=== PATIENT | male | born 1945 | race Caucasian/White ===

== ENCOUNTER 2016-06-28 10:53 | Inpatient (IN) | payer MEDICARE, OTHER ==
[~2016-06-28] VITALS: Ht 167.6 cm; Wt 68.0 kg
[~2016-06-28 10:53] MED LIST: GLYB5TAB3 PO; METF500T4 PO
[2016-06-28] MEDS ORDERED: SOD CHLORIDE 0.9% 1,000 ML IV STA (11:20)
[2016-06-28] MEDS ORDERED: MECLIZINE 12.5 MG TAB PO ONE (11:30)
--- NOTE | 2016-06-28 11:46 | RADRPT ---
PROCEDURE: Chest Radiograph. CLINICAL INDICATION: Stroke. TECHNIQUE: Single frontal chest radiograph. COMPARISON: Chest radiograph 12/06/2014 FINDINGS: The cardiomediastinal silhouette is within normal limits. No infiltrate or effusion is seen. Th e bones are intact. IMPRESSION: 1. Unremarkable chest radiograph. RPTAT: KK .Chang Moffett MD, MD Date Time Electronically viewed and signed by .Chang Moffett MD, on 06/28/2016 11:45 .B/
[2016-06-28 12:16] LABS: ADD UMIC YES; URINE BILIRUBIN (Dip) NEGATIVE (NEGATIVE); URINE BLOOD (Dip) 2+ (NEGATIVE); URINE COLOR LT. YELLOW (YELLOW); URINE GLUCOSE (Dip) >=1000 % (NEGATIVE); URINE KETONES (Dip) NEGATIVE (NEGATIVE); URINE LEUKOCYTE ESTERASE (Dip) NEGATIVE (NEGATIVE); URINE NITRITE (Dip) NEGATIVE (NEGATIVE); URINE TOTAL PROTEIN (Dip) 4+ (NEGATIVE); URINE UROBILINOGEN (Dip) 0.2 E.U./dL (0.1-1.0)
[2016-06-28 12:29] LABS: BACTERIA,URINE FEW
[2016-06-28 12:47] LABS: ADD SCAN DIFF NO
[2016-06-28 13:00] LABS: BASOPHILS % 0.2 % (0.0-2.0); EOSINOPHILS % 0.2 % (0.0-7.0); HEMATOCRIT 41.6 % (42.0-52.0); HEMOGLOBIN 14.8 g/dl (14.0-18.0); MEAN CORPUSCULAR HEMOGLOBIN 31.4 pg (29.0-33.0); MEAN CORPUSCULAR HGB CONC 35.6 g/dl (32.0-37.0); MEAN CORPUSCULAR VOLUME 88.1 fl (82.0-101.0); MEAN PLATELET VOLUME 10.3 fl (7.4-10.4); MONOCYTE # 0.5 10^3/ul (0.3-0.9); MONOCYTES % 5.1 % (0.0-11.0); NEUTROPHIL # 8.1 10^3/ul (1.6-7.5); NEUTROPHILS % 84.1 % (39.0-77.0); PLATELET COUNT 284 10^3/UL (140-415); RED BLOOD COUNT 4.72 10^6/ul (4.70-6.10); RED CELL DISTRIBUTION WIDTH 11.8 % (11.5-14.5); WHITE BLOOD COUNT 9.6 10^3/ul (4.8-10.8)
[2016-06-28 13:01] LABS: BARBITURATES Negative (NEGATIVE); BENZODIAZEPINES Negative (NEGATIVE); CANNABINOIDS Negative (NEGATIVE); COCAINE Negative (NEGATIVE); OPIATES Negative (NEGATIVE)
[2016-06-28 13:06] LABS: CHLORIDE 96 mmol/L (97-110)
[2016-06-28 13:07] LABS: POTASSIUM 4.4 mmol/L (3.5-5.1); SODIUM 135 mmol/L (135-144)
[2016-06-28 13:08] LABS: INR 0.97; PROTIME 12.9 Sec (12.2-14.2)
[2016-06-28 13:09] LABS: CREATININE 0.92 mg/dl (0.61-1.24); PARTIAL THROMBOPLASTIN TIME 33.7 Sec (25.0-35.0)
[2016-06-28 13:10] LABS: ANION GAP 14 (8-16); BLOOD UREA NITROGEN 19 mg/dl (7-20); CALCIUM 9.9 mg/dl (8.4-10.2); CARBON DIOXIDE 29 mmol/L (21-31); GLUCOSE 267 mg/dl (70-220)
[2016-06-28 13:23] LABS: TROPONIN-I < 0.012 ng/ml (0.00-0.12)
--- NOTE | 2016-06-28 13:29 | RADRPT ---
PROCEDURE: Noncontrast CT Head. CLINICAL INDICATION: Syncope. Nausea. Stroke. TECHNIQUE: Noncontrast CT of the head was obtained. The administered radiation dose was CTDI vol = 44.58 mGy, DLP = 630.02 mGy-cm. One or more of the following dose reduction techniques were used: Au tomated exposure control, Adjustment of the mA and/or kV according to patient size, or Use of iterat armani reconstruction technique. COMPARISON: There are no similar studies submitted for comparison. FINDINGS: There is minimal generalized cerebral volume loss. There is mild periventricular hypoattenuation sug gesting chronic microvascular ischemic changes. There is a 1.4 cm focal hypodensity within the right superior cerebellum suggestive of acute / recen t infarction. 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 There are mild vascular calcifications within th e intracranial carotid arteries. There is no acute intracranial hemorrhage or extra-axial fluid collection. There is no mass effect. No midline shift is identified. The orbits are within normal limits. The paranasal sinuses are well aerated. No destructive osseous lesion is identified. IMPRESSION: 1. Focal loss of rocha-white differentiation within the right superior cerebellar hemisphere suggesti ng acute / recent infarction. Noncontrast MRI of the brain may be performed as clinically warranted . 2. No acute intracranial hemorrhage. 3. Minimal generalized cerebral volume loss. 4. Minimal chronic microvascular ischemic changes. 5. 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 Further findings as detailed above. These findings were discussed with Dr. Nazario Christine at 01:23 p.m. on June 28, 2016. RPTAT: PP .Tam Vanrer MD, Date Time Electronically viewed and signed by .Tam Varner MD, MD on 06/28/2016 13:28 .F/
[2016-06-28] MEDS ORDERED: ASPIRIN 325 MG TAB PO ONE (13:30)
[2016-06-28] MEDS ORDERED: ACETAMINOPHEN 325 MG TAB PO PRN (14:00)
[2016-06-28] MEDS ORDERED: ONDANSETRON 4 MG INJ IV PRN ×2 (14:00→17:00)
--- NOTE | 2016-06-28 14:39 | ERA ---
ER Documentation Chief Complaint Date/Time DATE: 06/28/16 TIME: 14:36 Chief Complaint VOMITTING AND DIZZINESS HPI Patient is a 70-year-old male with hypertension, diabetes, and high cholesterol presents for dizziness. The patient was sent by Dr. Vizcaino for a dizziness workup. Dr. Vizcaino was concerned for vertigo versus stroke. The patient said that yesterday he noted that his balance was off and felt like the room was spinning. Today continued and it was coming and going. The patient denies fevers. He has had no treatment as of yet. ROS All systems reviewed and are negative except as per history of present illness. Medications Home Meds Reported Medications Glyburide* (Glyburide*) 5 Mg Tablet, 10 MG PO DAILY, TAB 10/30/14 Metformin* (Glucophage*) 500 Mg Tab, 500 MG PO BID, TAB 10/30/14 Allergies Allergies: Coded Allergies: No Known Allergy (Unverified , 10/30/14) PMhx/Soc History of Surgery: Yes (LEFT SHOILDER 50 YEARS AGO ) Anesthesia Reaction: No Hx Neurological Disorder: No Hx Respiratory Disorders: No Hx Cardiac Disorders: No Hx Psychiatric Problems: No Hx Miscellaneous Medical Probl: No Hx Alcohol Use: No Hx Substance Use: No Hx Tobacco Use: No (SMOKED FOR TEN YEARS WHEN HE WAS YOUNG) Smoking Status: Former smoker FmHx Family History: diabetes Physical Exam Vitals Vital Signs Date Time Temp Pulse Resp B/P Pulse Ox O2 Delivery O2 Flow Rate FiO2 06/28/16 12:16 Nasal Cannula 2 06/28/16 10:58 98.4 78 19 188/85 98 Physical Exam Const: No acute distress Head: Atraumatic Eyes: Normal Conjunctiva ENT: Normal External Ears, Nose and Mouth. Neck: Full range of motion..~ No meningismus. Resp: Clear to auscultation bilaterally Cardio: Regular rate and rhythm, no murmurs Abd: Soft, non tender, non distended. Normal bowel sounds Skin: No petechiae or rashes Back: No midline or flank tenderness Ext: No cyanosis, or edema Neur: Awake and alert, no slurred speech, abnormal finger to nose Psych: Normal Mood and Affect Result Diagram: 06/28/16 1208 06/28/16 1208 Results 24 hrs Laboratory Tests Test 06/28/16 11:55 06/28/16 12:08 06/28/16 12:21 06/28/16 13:00 Urine Color LT. YELLOW Urine Clarity CLEAR Urine pH 6.5 Urine Specific [place] 1.020 Urine Ketones NEGATIVE Urine Nitrite NEGATIVE Urine Bilirubin NEGATIVE Urine Urobilinogen 0.2 E.U./dL Urine Leukocyte Esterase NEGATIVE Urine Microscopic RBC 2-5/HPF Urine Microscopic WBC NONE SEEN/HPF Urine Epithelial Cells FEW Urine Bacteria FEW Urine Hemoglobin 2+ Urine Glucose >=1000% Urine Total Protein 4+ Urine Opiates Screen Negative Urine Barbiturates Negative Urine Amphetamines Screen Negative Urine Benzodiazepines Screen Negative Urine Cocaine Screen Negative Urine Cannabinoids Negative White Blood Count 9.610^3/ul Red Blood Count 4.7210^6/ul Hemoglobin 14.8g/dl Hematocrit 41.6% Mean Corpuscular Volume 88.1fl Mean Corpuscular Hemoglobin 31.4pg Mean Corpuscular Hemoglobin Concent 35.6g/dl Red Cell Distribution Width 11.8% Platelet Count 48485^3/UL Mean Platelet Volume 10.3fl Neutrophils % 84.1% Lymphocytes % 10.0% Monocytes % 5.1% Eosinophils % 0.2% Basophils % 0.2% Nucleated Red Blood Cells % 0.0/100WBC Neutrophils # 8.110^3/ul Lymphocytes # 1.010^3/ul Monocytes # 0.510^3/ul Eosinophils # 0.010^3/ul Basophils # 0.010^3/ul Nucleated Red Blood Cells # 0.010^3/ul Prothrombin Time 12.9Sec Prothrombin Time Ratio 1.0 INR International Normalized Ratio 0.97 Activated Partial Thromboplast Time 33.7Sec Sodium Level 135mmol/L Potassium Level 4.4mmol/L Chloride Level 96mmol/L Carbon Dioxide Level 29mmol/L Anion Gap 14 Blood Urea Nitrogen 19mg/dl Creatinine 0.92mg/dl Glucose Level 267mg/dl Calcium Level 9.9mg/dl Troponin I < 0.012ng/ml Bedside Glucose 230mg/dL Hemoglobin A1c 10.6% Current Medications Medications (Trade) Dose Ordered Sig/Lyubov Route PRN Reason Start Time Stop Time Status Last Admin Dose Admin Sodium Chloride (NS) 1,000 ml @ 1,000 mls/hr Q1H STAT IV 06/28/16 11:20 06/28/16 12:19 DC 06/28/16 12:13 Meclizine HCl (Antivert) 25 mg ONCE ONCE PO 06/28/16 11:30 06/28/16 11:31 DC 06/28/16 12:13 Aspirin (Aspirin) 325 mg ONCE ONCE PO 06/28/16 13:30 06/28/16 13:31 DC 06/28/16 13:47 Ondansetron HCl (Zofran Inj) 4 mg ER BRIDGE PRN IV NAUSEA AND/OR VOMITING 06/28/16 14:00 06/29/16 13:59 Acetaminophen (Tylenol Tab) 650 mg ER BRIDGE PRN PO MILD PAIN/FEVER 06/28/16 14:00 06/29/16 13:59 Procedures/MDM CT scan shows acute stroke per radiology. EKG read by me: Rate/Rhythm: Regular rate and rhythm at a rate of 77 Intervals: Normal Impression: No evidence of ischemia or arrhythmia Patient is a 70-year-old male with cardiac risk factors who presents with an acute stroke in the cerebellar region. This is likely the cause of his dizziness. The patient had an NIH stroke scale and bedside swallow evaluation performed. He was given meclizine and aspirin. The patient will be admitted to the care of Dr. Logan from the panel team as his primary doctor does not admit to the hospital. The patient will be admitted to a telemetry bed. The patient is outside the window for TPA or mechanical retrieval as the symptoms started yesterday. Departure Diagnosis: Primary Impression: Stroke Qualified Code: I63.9 - Cerebrovascular accident (CVA), unspecified mechanism Additional Impression: Dizziness Condition: JULIO Stockton MD Jun 28, 2016 14:39
[2016-06-28] MEDS ORDERED: NACL 0.9% 3 ML SYG IV SCH (17:00)
[2016-06-28] MEDS ORDERED: hydrALAzine 20 MG INJ IV PRN (17:00)
[2016-06-28] MEDS ORDERED: ZOLPIDEM 5 MG TAB PO PRN (17:00)
[2016-06-28] MEDS ORDERED: GLUCOSE GEL 15 GRAM TUBE BUCCAL PRN (17:00)
[2016-06-28] MEDS ORDERED: DEXTROSE 50% 50 ML SYRINGE IV PRN ×2 (17:00)
[2016-06-28] MEDS ORDERED: morphine 2 MG INJ IV PRN (17:00)
[2016-06-28] MEDS ORDERED: GLUCAGON 1 MG INJ IM PRN (17:00)
[2016-06-28] MEDS ORDERED: DOCUSATE SODIUM 100 MG CAP PO PRN (17:00)
[2016-06-28] MEDS ORDERED: HYDROCODONE/APAP (5/325) TAB PO PRN (17:00)
[2016-06-28] MEDS ORDERED: GLUCOSE GEL 15 GRAM TUBE PO PRN ×2 (17:00)
--- NOTE | 2016-06-28 17:43 | RADRPT ---
PROCEDURE: US Carotids. CLINICAL INDICATION: Bruit, CVA TECHNIQUE: Multiple sonographic of the carotid arteries were obtained utilizing rocha scale imaging . Color and Doppler imaging was performed. The images were reviewed on a PACS workstation. COMPARISON: No prior studies are available for comparison. FINDINGS: RIGHT: CCA 82.0 cm/sec Prox ICA 66.3 cm/sec Mid ICA 58.8 cm/sec Dist ICA 53.0 cm/sec ECA 77.5 cm/sec ICA/CCA 0.7 LEFT: CCA 96.9 cm/sec Prox ICA 68.3 cm/sec Mid ICA 74.1 cm/sec Dist ICA 51.3 cm/sec ECA 115.3 cm/sec ICA/CCA 0.6 Antegrade flow is seen within the vertebral arteries bilaterally. Mild plaque is seen within the car otid system bilaterally. However, no evidence for hemodynamically significant stenosis or occlusion is identified. IMPRESSION: 1. Mild soft and calcific plaque without evidence for hemodynamically significant stenosis or occlu criss by NASCET criteria. 2. Antegrade flow seen within the vertebral arteries bilaterally. RPTAT: HH .Rima Arechiga MD, Date Time Electronically viewed and signed by .Rima Arechiga MD, on 06/28/2016 17:43 .G/
[2016-06-28] MEDS: INSULIN ASPART [NOVOLOG] 3 ML PEN SC SCH ×3 (18:05→21:42)
--- NOTE | 2016-06-28 19:21 | HP ---
DATE OF ADMISSION: 06/28/2016 CHIEF COMPLAINT: Unsteady gait. HISTORY OF PRESENT ILLNESS: The patient is a 70-year-old male with history of insulin-dependent darci betes, hypertension, and dyslipidemia. The patient does have a history of uncontrolled diabetes and has had complications related to diabetes including a first digit amputation on the left foot. The patient presents with 1 month of worsening dizziness and unsteady gait. He states that it became e xacerbated yesterday. The patient also reports nausea with abdominal pain over the past month. The patient does state that his sugars have recently been elevated. The patient was sent by his PCP to the ER for evaluation of possible CVA. In the ED, the patient had a brain CT that showed a focal l oss of rocha-white differentiation within the right superior cerebellar hemisphere suggesting an acut e recent infarction. The patient has no other acute complaints at this time. He denies any loss of language ability and denies any focal weakness. PAST MEDICAL HISTORY: Hypertension, insulin-dependent diabetes, dyslipidemia. Denies any cardiac h istory or strokes in the past. 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 HOME MEDICATIONS: Please see medication reconciliation. ALLERGIES: NO KNOWN DRUG ALLERGIES. FAMILY HISTORY: Noncontributory. SOCIAL HISTORY: Denies any alcohol, tobacco, or drug abuse. REVIEW OF SYSTEMS: A 12 review of systems is negative except that discussed in HPI. PHYSICAL EXAMINATION: VITAL SIGNS: Temperature is 98.4, pulse is 78, respiratory rate is 19, BP is 188/85, saturation 98% on 2 liters. GENERAL: No acute distress, alert and oriented. HEENT: Normocephalic, atraumatic. LUNGS: Clear to auscultation. CARDIOVASCULAR: Regular rate and rhythm. ABDOMEN: Nondistended, nontender, soft. EXTREMITIES: No clubbing, cyanosis, or edema. First toe amputation is noted on the left foot. NEUROLOGIC: No focal deficits. LABORATORIES: White count is 9.6, hemoglobin is 14.8, platelets are 284. Chemistry within normal l imits except for chloride of 96, glucose 267. A1c is 10.6. Troponins are normal. INR is 0.97. UA is within normal limits except for 4+ total protein, hemoglobin is 2+. U-tox is negative. DIAGNOSTICS: Chest x-ray is unremarkable. Brain CT shows a right superior cerebellar acute infarct ion. ASSESSMENT AND PLAN: 1. Unsteady gait, likely secondary to cerebellar infarct. The patient does have a right-sided cere bellar infarction noted on the brain CT. We will get a neurology consultation. Will treat with asp irin and Lipitor. Will get PT evaluation. Consider MRI. 2. Insulin-dependent diabetes. The patient's diabetes is poorly controlled. We will get a diabeti c educator evaluation and a dietitian consult. The patient's symptoms of abdominal pain and nausea when he eats is likely secondary to gastroparesis from his poorly controlled diabetes. 3. Hypertension. Resume home medications, as patient is outside the window for permissive hyperten criss, as his symptoms began yesterday morning. 4. Dyslipidemia. Continue statin. 5. Prophylaxis: Lovenox. Dictated By: RUBIO DELCID MD BS/ANNA Conf#: [id number] DID#: [id number]
[2016-06-28 20:57] VITALS: PULSE 85
[2016-06-28 21:07] VITALS: Ht 167.6 cm; Wt 68.0 kg
[2016-06-28 21:15] VITALS: BP 166/73; RESP 20
[2016-06-28] MEDS: INSULIN GLARGINE [LANtus] 3 ML PEN SC SCH (21:31)
[2016-06-28] MEDS: ATORVASTATIN 80 MG TAB PO SCH (21:33)
[2016-06-28] MEDS: LISINOPRIL 10 MG TAB PO SCH (21:34)
--- NOTE | 2016-06-28 22:32 | CONS ---
DATE OF ADMISSION: 06/28/2016 DATE OF CONSULTATION: 06/28/2016 TYPE OF CONSULTATION: Neurology. Thank you, Dr. Thomson, for your kind referral for evaluation of acute stroke. HISTORY OF PRESENT ILLNESS: The patient is a 70-year-old gentleman with past medical history of darci betes, hypertension, dyslipidemia who presented with unsteady gait and dizziness for a couple of day s. Now, his dizziness has resolved, but he still complains of unsteadiness when he walks HOME MEDICATIONS: 1. Glyburide. 3. Metformin. Unclear if it is the full list of medicines or not. ALLERGIES: NONE. SOCIAL HISTORY: No alcohol, tobacco, drug use. FAMILY HISTORY: Noncontributory. REVIEW OF SYSTEMS: All pertinent positives included in the above history of present illness. IMAGING: In the hospital, patient had CAT scan of the head, which shows right superior cerebellar h ypodense lesion suspicious for acute/subacute stroke. Chest x-ray unremarkable. Carotid ultrasound , no hemodynamically significant lesions. LABORATORY DATA: Shows normal CBC, basic metabolic panel within normal limits. Hemoglobin A1c 10.6 . Troponins negative. PT, PTT within normal limits. Urinalysis: 2+ hemoglobin, 4+ protein, and e levated glucose. Tox screen is negative. MEDICATIONS IN THE HOSPITAL: The patient was put on: 1. Lovenox for DVT prevention. 2. Aspirin 325. 3. Lipitor 80. 4. Insulin sliding scale. PHYSICAL EXAMINATION: VITAL SIGNS: Today, 98.4 temperature, pulse 76, 18 respirations, blood pressure 209/70. GENERAL: Not in acute distress, lying in bed. HEENT: Normocephalic, atraumatic head. NECK: No carotid bruits. No thyromegaly. LUNGS: Clear to auscultation bilaterally. CARDIAC: Normal cardiac rhythm and sounds. ABDOMEN: Soft, nontender. EXTREMITIES: No cyanosis, clubbing, or edema. NEUROLOGIC: He is awake, alert, and oriented x3 with fluent speech. Cranial nerve examination show s intact visual manrique bilaterally. Pupils round, reactive to light from 3 to 2 mm bilaterally. Ex traocular movements intact without nystagmus. Right palpebral fissure slightly smaller, but no faci al weakness. Preserved facial strength and sensation. Tongue is in midline. Palate elevates symme trically. Motor strength examination preserved in all extremities. Normal bulk, tone, and strength . Sensory examination intact to light touch and pain grossly. Coordination is preserved on finger- to-finger testing. No dysmetria or tremor. Deep tendon reflexes 2+ upper extremities, 1+ knee jerk s, absent ankle jerks. Downgoing toes bilaterally. Gait was not assessed. IMPRESSION: A 70-year-old gentleman with uncontrolled diabetes, hypertension who presented with 2 d ays of unsteadiness of gait and vertigo. Vertigo has resolved, but unsteadiness of gait is still pr esent. CAT scan of the head suggests presence of acute right cerebellar stroke. PLAN: 1. Obtain MRI of the brain, EKG, and echocardiogram. 2. Physical therapy evaluation. 3. The patient denied problem swallowing. 4. Keep patient euglycemic. 5. Continue high dose statin and aspirin. 6. Usually it is okay to allow elevated blood pressure up to 220/120 in the first 1 to 2 days after acute stroke. The patient's symptoms started couple days ago, so may start gradually obtaining con trol of the blood pressure. Thank you very much for this interesting consultation. Dictated By: AMERICO POWELL/ANNA Conf#: [id number] DID#: [id number] CC: MALLY LINTON MD; RUBIO THOMSON MD;*[facility]*
[2016-06-28 23:53] VITALS: BP 144/67; RESP 20
[2016-06-29] VITALS (12 sets, daily range): BP systolic 119–165; BP diastolic 59–77; PULSE 68–83; RESP 18–20
[2016-06-29] MEDS: INSULIN ASPART [NOVOLOG] 3 ML PEN SC SCH ×7 (07:55→21:00)
[2016-06-29 08:18] LABS: ADD SCAN DIFF NO
[2016-06-29 08:30] LABS: BASOPHILS % 0.2 % (0.0-2.0); EOSINOPHILS # 0.1 10^3/ul (0.0-0.5); EOSINOPHILS % 1.2 % (0.0-7.0); HEMATOCRIT 41.2 % (42.0-52.0); HEMOGLOBIN 13.7 g/dl (14.0-18.0); LYMPHOCYTES # 1.8 10^3/ul (0.8-2.9); LYMPHOCYTES % 21.4 % (15.0-51.0); MEAN CORPUSCULAR HEMOGLOBIN 29.8 pg (29.0-33.0); MEAN CORPUSCULAR HGB CONC 33.3 g/dl (32.0-37.0); MEAN CORPUSCULAR VOLUME 89.8 fl (82.0-101.0); MEAN PLATELET VOLUME 10.4 fl (7.4-10.4); MONOCYTE # 0.8 10^3/ul (0.3-0.9); MONOCYTES % 9.9 % (0.0-11.0); NEUTROPHIL # 5.7 10^3/ul (1.6-7.5); NEUTROPHILS % 66.6 % (39.0-77.0); PLATELET COUNT 274 10^3/UL (140-415); RED BLOOD COUNT 4.59 10^6/ul (4.70-6.10); RED CELL DISTRIBUTION WIDTH 12.2 % (11.5-14.5); WHITE BLOOD COUNT 8.5 10^3/ul (4.8-10.8)
[2016-06-29] MEDS: ASPIRIN (EC) 325 MG TAB PO SCH (08:31)
[2016-06-29] MEDS: LISINOPRIL 10 MG TAB PO SCH (08:32)
[2016-06-29 08:42] LABS: CREATININE 1.08 mg/dl (0.61-1.24)
[2016-06-29 08:44] LABS: CALCIUM 9.1 mg/dl (8.4-10.2); CHOL/HDL RATIO 6.9 RATIO; MAGNESIUM 2.2 mg/dl (1.7-2.5)
[2016-06-29] MEDS: ENOXAPARIN 40 MG/0.4 ML SYG SC SCH (08:45)
[2016-06-29] MEDS: ACETAMINOPHEN 325 MG TAB PO PRN ×2 (08:55→22:12)
--- NOTE | 2016-06-29 16:49 | RADRPT ---
Echocardiogram Report Patient Name: TAB GRANADOS Gender: Male Date: 1945 Study Date: 29-Jun-2016 Machine Designer: Jb Carrillo [facility] Location: 522 Ref. Physician: RUBIO DELCID Quality: Good Procedures: Transthoracic echocardiogram with complete 2D, M-Mode, and doppler examination. Indications: Cerebrovascular Accident. 2D/M Mode Doppler Measurement Value Normal Ranges Measurement Value Normal Ranges LVIDd 2D 4.1 3.5 - 5.6 cm AV Peak Narinder 1.4 m/sec LVIDs 2D 2.0 2.1 - 4.1 cm AV Peak PG 8.0 mmHg FS 2D 49.5 % AI Peak PG 56.0 mmHg LVPWd 2D 1.0 0.6 - 1.1 cm AI Peak Narinder 3.7 m/sec IVSd 2D 1.0 0.6 - 1.1 cm AI PHT 626.0 msec IVS/LVPW 2D 1.0 LVOT Peak Narinder 1.0 m/sec AoR Diam 2D 3.1 2.0 - 3.7 cm LVOT Peak PG 4.0 mmHg LA/Ao 2D 1 0 - 1 MV E Peak Narinder 0.5 m/sec EDV 2D 66.9 cm3 MV A Peak Narinder 0.9 m/sec ESV 2D 8.6 cm3 MV E/A 0.5 LA Dimen 2D 3.3 2.3 - 4.0 cm MV Decel Time 155 msec MV E/A 0.5 TR Peak Narinder 2.3 m/sec TR Peak PG 22.0 mmHg RVSP 25.0 mmHg Findings Left Ventricle: Normal left ventricular systolic function. Normal left ventricular cavity size. Normal left ventricular wall thickness. Ejection fraction is visually estimated at 65 - 70 %. Tissue Doppler/Mitral Doppler indices are consistent with impaired relaxation (Stage I diastolic dysfunction). Right Ventricle: Normal right ventricular size. Normal right ventricular systolic function. Left Atrium: The left atrium is normal in size. Right Atrium: The right atrium is normal in size. Mitral Valve: Normal appearance and function of the mitral valve with trace physiologic regurgitation. Aortic Valve: No hemodynamically significant aortic stenosis by doppler. Aortic cusps appear mildly calcified. Mild aortic valve regurgitation. Tricuspid Valve: Normal appearance of the tricuspid valve. Estimated peak PA systolic pressure 25 mmHg. There is trace tricuspid regurgitation. Pulmonic Valve: Pulmonic valve not well visualized. Pericardium: Normal pericardium with no significant pericardial effusion. Aorta: Normal aortic root. IVC: Normal size and normal respiratory collapse consistent with normal right atrial pressure. Conclusions 1.Normal left ventricular systolic function. Normal left ventricular cavity size. Normal left ventricular wall thickness. Ejection fraction is visually estimated at 65 - 70 %. Tissue Doppler/Mitral Doppler indices are consistent with impaired relaxation (Stage I diastolic dysfunction). 2.Normal appearance and function of the mitral valve with trace physiologic regurgitation. 3.No hemodynamically significant aortic stenosis by doppler. Aortic cusps appear mildly calcified. Mild aortic valve regurgitation. 4.Normal appearance of the tricuspid valve. Estimated peak PA systolic pressure 25 mmHg. There is trace tricuspid regurgitation. Electronically Signed By: Corwin Carroll 29-Jun-2016 16:48:41 -0700 Patient Name: TAB GRANADOS Study Date: 29-Jun-2016 [id number]
--- NOTE | 2016-06-29 18:11 | PN ---
Date/Time of Note Date/Time of Note DATE: 06/29/16 TIME: 18:06 Assessment/Plan VTE Prophylaxis VTE Prophylaxis Intervention: LMWH Lines/Catheters IV C[facility]ter Type [facility]from [facility]): [place] [facility] Urinary Cath still in place: No Assessment/Plan Chief Complaint/Hosp Course 1. Unsteady gait secondary to cerebellar infarct Neuro consult appreciated, plan is for MRI today Continue PT 2. Insulin required diabetes- poorly controlled with A1c of 10.6 Diabetes education and dietary consult appreciated Sugars are currently stable with in-house insulin regimen Symptoms of abdominal pain and nausea with food is likely secondary to gastroparesis from his poorly controlled diabetes. 3. Hypertension-stable Patient is no longer in the window for permissive hypertension will continue to uptitrate lisinopril 4. Dyslipidemia- Continue statin. 5. Prophylaxis: Lovenox Dispo- likely DC in a.m. after MRI obtained Problems: Subjective 24 Hr Interval Summary Constitutional: no complaints Exam/Review of Systems Vital Signs Vitals Vital Signs Date Time Temp Pulse Resp B/P Pulse Ox O2 Delivery O2 Flow Rate FiO2 06/29/16 16:14 68 06/29/16 15:12 98.4 20 144/69 98 06/28/16 18:23 Room Air 06/28/16 12:16 2 Intake and Output 06/28/16 06/28/16 06/29/16 15:00 23:00 07:00 Intake Total 120 ml Output Total 200 ml Balance -80 ml Exam Constitutional: alert Respiratory: clear to auscultation Cardiovascular: regular rate and rhythm Gastrointestinal: soft, No distended Musculoskeletal: nl extremities to inspection Results Result Diagram: 06/29/16 0733 06/29/16 0753 Results 24 hrs Laboratory Tests Test 06/28/16 19:25 06/28/16 21:27 06/29/16 02:58 06/29/16 07:33 Bedside Glucose 142 191 204 White Blood Count 8.5 Red Blood Count 4.59 L Hemoglobin 13.7 L Hematocrit 41.2 L Mean Corpuscular Volume 89.8 Mean Corpuscular Hemoglobin 29.8 Mean Corpuscular Hemoglobin Concent 33.3 Red Cell Distribution Width 12.2 Platelet Count 274 Mean Platelet Volume 10.4 Neutrophils % 66.6 Lymphocytes % 21.4 Monocytes % 9.9 Eosinophils % 1.2 Basophils % 0.2 Nucleated Red Blood Cells % 0.0 Neutrophils # 5.7 Lymphocytes # 1.8 Monocytes # 0.8 Eosinophils # 0.1 Basophils # 0.0 Nucleated Red Blood Cells # 0.0 Test 06/29/16 07:37 06/29/16 07:53 06/29/16 12:22 06/29/16 17:05 Bedside Glucose 123 106 133 Sodium Level 139 Potassium Level 4.0 Chloride Level 102 Carbon Dioxide Level 28 Anion Gap 13 Blood Urea Nitrogen 23 H Creatinine 1.08 Glucose Level 118 # Calcium Level 9.1 Phosphorus Level 4.0 Magnesium Level 2.2 Triglycerides Level 194 H Cholesterol Level 201 H LDL Cholesterol, Calculated 133 HDL Cholesterol 29 L Cholesterol/HDL Ratio 6.9 Medications Medications Current Medications Ondansetron HCl (Zofran Inj) 4 mg Q6H PRN IV NAUSEA AND/OR VOMITING; Start at 17:00 Acetaminophen (Tylenol Tab) 650 mg Q6H PRN PO PAIN LEVEL 1-3 OR FEVER Last administered on 06/29/16 08:55; Admin Dose 650 MG; Start 06/28/16 at 17:00 Acetaminophen/ Hydrocodone Bitart ([place] (5/325)) 1 tab Q6H PRN PO MODERATE PAIN LEVEL 4-6; Start 06/28/16 at 17:00 Morphine Sulfate (morphine) 2 mg Q4H PRN IV SEVERE PAIN LEVEL 7-10; Start 06/28 at 17:00 Docusate Sodium (Colace) 100 mg Q12H PRN PO CONSTIPATION; Start 06/28/16 at 17: 00 Zolpidem Tartrate (Ambien) 5 mg QHS PRN PO SLEEP; Start 06/28/16 at 17:00 Enoxaparin Sodium (Lovenox) 40 mg DAILY SC Last administered on 06/29/16 08:45 ; Admin Dose 40 MG; Start 06/29/16 at 09:00 Insulin Glargine (Lantus) 14 unit DAILY@20 SC Last administered on 06/28/16 21 :31; Admin Dose 14 UNIT; Start 06/28/16 at 20:00 Aspirin (Ecotrin) 325 mg DAILY PO Last administered on 06/29/16 08:31; Admin Dose 325 MG; Start 06/29/16 at 09:00 Atorvastatin Calcium (Lipitor) 80 mg HS PO Last administered on 06/28/16 21:33 ; Admin Dose 80 MG; Start 06/28/16 at 21:00 Lisinopril (Zestril) 10 mg DAILY PO Last administered on 06/29/16 08:32; Admin Dose 10 MG; Start 06/28/16 at 17:00 Hydralazine HCl (Apresoline) 10 mg Q4H PRN IV SBP>180; Start 06/28/16 at 17:00 Miscellaneous Information 1 ea NOTE XX ; Start 06/28/16 at 17:00 Glucose (Glutose) 15 gm Q15M PRN PO DECREASED GLUCOSE; Start 06/28/16 at 17:00 Glucose (Glutose) 22.5 gm Q15M PRN PO DECREASED GLUCOSE; Start 06/28/16 at 17: 00 Dextrose (D50w Syringe) 25 ml Q15M PRN IV DECREASED GLUCOSE; Start 06/28/16 at 17:00 Dextrose (D50w Syringe) 50 ml Q15M PRN IV DECREASED GLUCOSE; Start 06/28/16 at 17:00 Glucagon (Glucagen) 1 mg Q15M PRN IM DECREASED GLUCOSE; Start 06/28/16 at 17:00 Glucose (Glutose) 15 gm Q15M PRN BUCCAL DECREASED GLUCOSE; Start 06/28/16 at 17 :00 RUBIO DELCID Jun 29, 2016 18:11
[2016-06-29] MEDS: INSULIN GLARGINE [LANtus] 3 ML PEN SC SCH (20:07)
[2016-06-29] MEDS: ATORVASTATIN 80 MG TAB PO SCH (20:08)
--- NOTE | 2016-06-29 21:53 | CONS ---
Date/Time of Note Date/Time of Note DATE: 06/29/16 TIME: 21:51 Consult Date/Type/Reason Admit Date/Time Jun 28, 2016 at 13:46 Initial Consult Date Type of Consultation: neurology Reason for Consultation CVA Subjective no acute events, mild occasional headache, resolves with tylenol. No vertogo, less ataxia, able to ambulate with no help Objective Vital Signs Date Time Temp Pulse Resp B/P Pulse Ox O2 Delivery O2 Flow Rate FiO2 06/29/16 20:47 74 06/29/16 20:04 97.6 20 156/72 99 06/28/16 18:23 Room Air 06/28/16 12:16 2 Intake and Output 06/28/16 06/28/16 06/29/16 15:00 23:00 07:00 Intake Total 120 ml Output Total 200 ml Balance -80 ml Results/Medications Result Diagram: 06/29/16 0733 06/29/16 0753 Results 24 hrs Laboratory Tests Test 06/29/16 02:58 06/29/16 07:33 06/29/16 07:37 06/29/16 07:53 Bedside Glucose 204 123 White Blood Count 8.5 Red Blood Count 4.59 L Hemoglobin 13.7 L Hematocrit 41.2 L Mean Corpuscular Volume 89.8 Mean Corpuscular Hemoglobin 29.8 Mean Corpuscular Hemoglobin Concent 33.3 Red Cell Distribution Width 12.2 Platelet Count 274 Mean Platelet Volume 10.4 Neutrophils % 66.6 Lymphocytes % 21.4 Monocytes % 9.9 Eosinophils % 1.2 Basophils % 0.2 Nucleated Red Blood Cells % 0.0 Neutrophils # 5.7 Lymphocytes # 1.8 Monocytes # 0.8 Eosinophils # 0.1 Basophils # 0.0 Nucleated Red Blood Cells # 0.0 Sodium Level 139 Potassium Level 4.0 Chloride Level 102 Carbon Dioxide Level 28 Anion Gap 13 Blood Urea Nitrogen 23 H Creatinine 1.08 Glucose Level 118 # Calcium Level 9.1 Phosphorus Level 4.0 Magnesium Level 2.2 Triglycerides Level 194 H Cholesterol Level 201 H LDL Cholesterol, Calculated 133 HDL Cholesterol 29 L Cholesterol/HDL Ratio 6.9 Test 06/29/16 12:22 06/29/16 17:05 06/29/16 19:32 Bedside Glucose 106 133 151 Medications Current Medications Ondansetron HCl (Zofran Inj) 4 mg Q6H PRN IV NAUSEA AND/OR VOMITING; Start at 17:00 Acetaminophen (Tylenol Tab) 650 mg Q6H PRN PO PAIN LEVEL 1-3 OR FEVER Last administered on 06/29/16 08:55; Admin Dose 650 MG; Start 06/28/16 at 17:00 Acetaminophen/ Hydrocodone Bitart (Murphy (5/325)) 1 tab Q6H PRN PO MODERATE PAIN LEVEL 4-6; Start 06/28/16 at 17:00 Morphine Sulfate (morphine) 2 mg Q4H PRN IV SEVERE PAIN LEVEL 7-10; Start 06/28 at 17:00 Docusate Sodium (Colace) 100 mg Q12H PRN PO CONSTIPATION; Start 06/28/16 at 17: 00 Zolpidem Tartrate (Ambien) 5 mg QHS PRN PO SLEEP; Start 06/28/16 at 17:00 Enoxaparin Sodium (Lovenox) 40 mg DAILY SC Last administered on 06/29/16 08:45 ; Admin Dose 40 MG; Start 06/29/16 at 09:00 Insulin Glargine (Lantus) 14 unit DAILY@20 SC Last administered on 06/29/16 20 :07; Admin Dose 14 UNIT; Start 06/28/16 at 20:00 Aspirin (Ecotrin) 325 mg DAILY PO Last administered on 06/29/16 08:31; Admin Dose 325 MG; Start 06/29/16 at 09:00 Atorvastatin Calcium (Lipitor) 80 mg HS PO Last administered on 06/29/16 20:08 ; Admin Dose 80 MG; Start 06/28/16 at 21:00 Hydralazine HCl (Apresoline) 10 mg Q4H PRN IV SBP>180; Start 06/28/16 at 17:00 Miscellaneous Information 1 ea NOTE XX ; Start 06/28/16 at 17:00 Glucose (Glutose) 15 gm Q15M PRN PO DECREASED GLUCOSE; Start 06/28/16 at 17:00 Glucose (Glutose) 22.5 gm Q15M PRN PO DECREASED GLUCOSE; Start 06/28/16 at 17: 00 Dextrose (D50w Syringe) 25 ml Q15M PRN IV DECREASED GLUCOSE; Start 06/28/16 at 17:00 Dextrose (D50w Syringe) 50 ml Q15M PRN IV DECREASED GLUCOSE; Start 06/28/16 at 17:00 Glucagon (Glucagen) 1 mg Q15M PRN IM DECREASED GLUCOSE; Start 06/28/16 at 17:00 Glucose (Glutose) 15 gm Q15M PRN BUCCAL DECREASED GLUCOSE; Start 06/28/16 at 17 :00 Lisinopril (Zestril) 20 mg DAILY PO ; Start 06/30/16 at 09:00 Assessment/Plan Chief Complaint/Hosp Course PHYSICAL EXAMINATION: GENERAL: Not in acute distress, lying in bed. HEENT: Normocephalic, atraumatic head. NECK: No carotid bruits. No thyromegaly. LUNGS: Clear to auscultation bilaterally. CARDIAC: Normal cardiac rhythm and sounds. ABDOMEN: Soft, nontender. EXTREMITIES: No cyanosis, clubbing, or edema. NEUROLOGIC: He is awake, alert, and oriented x3 with fluent speech. Cranial nerve examination shows intact visual manrique bilaterally. Pupils round, reactive to light from 3 to 2 mm bilaterally. Extraocular movements intact without nystagmus. Right palpebral fissure slightly smaller, but no facial weakness. Preserved facial strength and sensation. Tongue is in midline. Palate elevates symmetrically. Motor strength examination preserved in all extremities. Normal bulk, tone, and strength. Sensory examination intact to light touch and pain grossly. Coordination is preserved on [id number] testing. No dysmetria or tremor. Deep tendon reflexes 2+ upper extremities, 1 + knee jerks, absent ankle jerks. Downgoing toes bilaterally. Gait was not assessed. IMPRESSION: A 70-year-old gentleman with uncontrolled diabetes, hypertension who presented with 2 days of unsteadiness of gait and vertigo. Vertigo has resolved, but unsteadiness of gait is still present. CAT scan of the head suggests presence of acute right cerebellar stroke. MRI of the brain pending. Continue physical therapy. Keep patient euglycemic and normotensive. Continue high dose statin and aspirin. Problems: AMERICO SMITH MD Jun 29, 2016 21:53
[2016-06-30] VITALS (8 sets, daily range): BP systolic 133–141; BP diastolic 63–68; PULSE 66–84; RESP 18–20
[2016-06-30 07:01] LABS: CALCIUM 8.8 mg/dl (8.4-10.2); CREATININE 1.04 mg/dl (0.61-1.24); POTASSIUM 4.3 mmol/L (3.5-5.1)
[2016-06-30] MEDS: INSULIN ASPART [NOVOLOG] 3 ML PEN SC SCH ×4 (07:55→12:41)
[2016-06-30] MEDS: ASPIRIN (EC) 325 MG TAB PO SCH (08:07)
[2016-06-30] MEDS: ENOXAPARIN 40 MG/0.4 ML SYG SC SCH (08:14)
[2016-06-30] MEDS: ACETAMINOPHEN 325 MG TAB PO PRN (08:16)
[2016-06-30] MEDS ORDERED: LISINOPRIL 20 MG TAB PO SCH (09:00)
[2016-06-30] MEDS ORDERED: METF1000 PO (11:33)
[2016-06-30] MEDS ORDERED: LANT3I SC (11:33)
[2016-06-30] MEDS ORDERED: LISI40TA9 PO (11:33)
[2016-06-30] MEDS ORDERED: NOVO3I SC (11:33)
[2016-06-30] MEDS ORDERED: ATOR80TA75 PO (11:33)
[2016-06-30] MEDS ORDERED: ASPI325T32 PO (11:33)
--- NOTE | 2016-06-30 11:34 | PDOCDIS ---
Discharge Instructions CONDITION Patient Condition: Good HOME CARE INSTRUCTIONS: Special Diet: DIABETIC ACTIVITY: Activity Restrictions: No Restrictions FOLLOW UP/APPOINTMENTS Appointments F/U WITH YOUR PCP IN 1-2 WEEKS RUBIO DELCID Jun 30, 2016 11:34
--- NOTE | 2016-06-30 17:39 | DS ---
DATE OF ADMISSION: 06/28/2016 DATE OF DISCHARGE: 06/30/2016 DISCHARGE DIAGNOSES: 1. Unsteady gait secondary to cerebellar infarct, now stable. The patient is ambulating well with no assistance. Discharge with aspirin and Lipitor. 2. Insulin requiring diabetes. The patient's A1c is elevated at 10.6. The patient needs better co ntrol. I have changed the regimen to Levemir 14 at night and NovoLog 10 with meals and increase met formin to 1000 b.i.d. 3. Hypertension, improved with lisinopril 40 daily. The patient was told to discontinue other home BP medication which is unknown. 4. Dyslipidemia. Continue statin. HOSPITAL COURSE: The patient is a 70-year-old male with a history of insulin requiring diabetes, hy pertension, dyslipidemia. The patient presents with dizziness over the past month that got worse se veral days prior to his arrival. In the ED, the patient had a CT of the brain that showed right sup erior cerebellar hemisphere acute infarct. The patient had a carotid Doppler study that showed mild soft plaque without evidence for significant stenosis or occlusion. The patient had a 2D echo that showed a normal EF. It did show stage I diastolic dysfunction. No other significant findings were noted on the echo. The patient was ambulating well without any assistance or any DMEs. The patient was seen by physical therapy as well as dietitian and a health educator as A1c is 10.6. The jaylyn ent's insulin regimen was changed to include NovoLog with meals which it does not appear that he was taking. His basal insulin was increased. The patient's sugars were controlled with a regimen of L antus 14 at night and NovoLog 10 with meals. The patient was stable for discharge. On the day of d ischarge, the patient's vitals, labs, and physical exam were stable. He had no acute complaints. Q uestions were answered. CONDITION ON DISCHARGE: Stable. DISPOSITION: To home. MEDICATIONS: The patient was given prescription for 1. Aspirin 325 daily. 2. Lipitor 80 mg p.o. at bedtime. 3. Lantus 14 units at bedtime. 4. NovoLog 10 with meals. 5. Lisinopril 40 mg daily. 6. Metformin 1000 mg p.o. with breakfast and dinner. The patient will stop taking his Glyburide and metformin 500. FOLLOWUP: The patient is to follow up with his PCP in 1 to 2 weeks. Greater than 30 minutes was spent coordinating discharge of patient. Dictated By: RUBIO CRAWFORD/NTS Conf#: [id number] DID#: [id number]
== END 2016-06-30 17:21 | disposition home or self-care (01) | DRG 66 ==
LOC: FTE 10:53 → TEL 13:46
PROVIDERS: ADMIT Family Medicine; ATTEND Family Medicine
DX: I63.8 Other cerebral infarction (principal); K31.84 Gastroparesis; E11.43 Type 2 diabetes mellitus with diabetic autonomic (poly)neuropathy; E11.65 Type 2 diabetes mellitus with hyperglycemia; Z79.4 Long term (current) use of insulin; E78.5 Hyperlipidemia, unspecified; I10 Essential (primary) hypertension; Z87.891 Personal history of nicotine dependence; Z89.412 Acquired absence of left great toe
CPT/HCPCS: 36415; 70450; 71010; 80048; 80061; 80307; 81001; 81003; 82962; 83036; 83735; 84100; 84484; 85025; 85610; 85730; 92610; 93005; 93306; 93880; 96372; 97163; J0360; J1650; J1815; J7030